=== PATIENT | male | born 1950 | race Caucasian/White ===

== ENCOUNTER 2016-07-08 09:30 | Outpatient (RCR) | payer OTHER ==
[~2016-07-08 09:30] MED LIST: ABILIFY 15MG TA15 MG PO; ASPIRIN E.C. 8181 MG PO; ATIVAN1 MG PO; DEPAKOTE PO; ESKALITH-CR450 MG PO; HCTZ/LISINOPRIL1 TAB PO; HYDROCODONE/APAP PO; IMDUR30 MG PO; LEVITRA20 MG PO; LIPITOR 80MG80 MG PO; LIPITOR80 MG PO; LISINOPRIL/HCTZ1 TA2 PO; LISINOPRIL/HCTZ1 TAB PO; METOPROLOL SUCC50 M2 PO; METOPROLOL25 MG PO; NITROSTAT0.4 MG SL; PRAVACHOL80 MG PO; PRAVASTATIN20 MG PO; PRILOSEC 20MG20 MG PO; VENTOLIN0.09 MG IH; VICODIN 5/5001 UDTAB PO; ZOLOFT 100MG100 MG PO
== END 2016-08-03 | disposition still patient (30) ==
LOC: WSPT
DX: M54.5 Low back pain (principal)
CPT/HCPCS: G8978-GP; G8979-GP

== ENCOUNTER 2016-08-24 12:30 | Outpatient (RCR) | payer OTHER | END 2016-09-21 08:23 | disposition home or self-care (01) | LOC: WSPT 12:30 | DX: M54.5 Low back pain (principal) | CPT/HCPCS: G8979-GP; G8980-GP ==